=== PATIENT | male | born 1990 | race African-American/Black ===

== ENCOUNTER 2019-10-23 13:36 | Inpatient (IN) | payer MEDICAID ==
[~2019-10-23] VITALS: Ht 175.3 cm; Wt 75.3 kg
[2019-10-23] MEDS ORDERED: PANTOPRAZOLE SODIUM 40 MG VIAL IV ONE (14:15)
[2019-10-23] MEDS ORDERED: IV NORMAL SALINE 1000 ML BAG IV ONE (14:15)
[2019-10-23 14:35] LABS: BASOPHILS # (AUTO) 0.2 K/uL (0.0-8.0); BASOPHILS % (AUTO) 0.8 % (0.0-2.0); EOSINOPHILS # (AUTO) 0.3 K/uL (0.0-0.7); EOSINOPHILS % (AUTO) 1.4 % (0.0-7.0); HEMATOCRIT 34.3 % (36.7-47.1); HEMOGLOBIN 10.5 g/dL (12.5-16.3); LYMPHOCYTES # (AUTO) 3.2 K/uL (20.0-40.0); LYMPHOCYTES % (AUTO) 16.3 % (20.5-51.5); MEAN CORPUSCULAR HEMOGLOBIN 23.4 uug (23.8-33.4); MEAN CORPUSCULAR HGB CONC 31 g/dL (32.5-36.3); MEAN CORPUSCULAR VOLUME 76.2 fL (73.0-96.2); MONOCYTES # (AUTO) 1.5 K/uL (2.0-10.0); MONOCYTES % (AUTO) 7.5 % (0.0-11.0); NEUTROPHILS # (AUTO) 14.5 K/uL (1.8-8.9); PLATELET COUNT (AUTO) 483 K/uL (152-348); WHITE BLOOD COUNT (AUTO) 19.6 K/uL (3.6-10.2)
[2019-10-23] MEDS ORDERED: PANTOPRAZOLE SODIUM 40 MG VIAL ONE (14:35)
[2019-10-23 14:52] LABS: BILIRUBIN,DIRECT 0.1 mg/dL (0.0-0.2); BILIRUBIN,TOTAL 0.4 mg/dL (0.2-1.0); CREATININE 1.2 mg/dL (0.6-1.3); POTASSIUM 4.3 mmol/L (3.5-5.1)
--- NOTE | 2019-10-23 14:56 | NUR ---
DR Schultz spoke to Dr Pruitt(surgeon).
[2019-10-23] MEDS ORDERED: PIPERACILLIN SODIUM/TAZOBACTAM 3.375 G in IV DEXTROSE 5% 50 ML IV ONE (15:00)
[2019-10-23] MEDS ORDERED: PIPERACILLIN/TAZOBACTAM/D5W 50 ML IV ONE (15:01)
--- NOTE | 2019-10-23 15:07 | NUR ---
COVID nasal swab collected and sent to LAB.
[2019-10-23] MEDS ORDERED: methylPREDNISolone SOD SUCC 40 MG/ML VIAL IV ONE (15:15)
[2019-10-23] MEDS ORDERED: methylPREDNISolone SOD SUCC 40 MG/ML VIAL ONE (15:18)
--- NOTE | 2019-10-23 16:20 | NUR ---
Pt arrived to RM 303 AOx4, on RA with no SOB or distress noted at this time. Pt cooperative. IV on left AC 18 g, flushed and patent. Complained of left side sharp 9/10 abdominal pain. Abdomen distended and left side firm compared to right. Complained of left medial leg pain aggravated by walking. Pt ambulated to bathroom with steady gait. Oriented to hospital and unit policy. Call light and phone within reach. Belongings checked and at bedside. Home medications given to pharmacy. Bed locked in lowest position with siderails 2x up. No other complaints at this time
[2019-10-23] MEDS ORDERED: Z GUARD REMEDY PASTE 57 GM TUBE TOP PRN (16:30)
[2019-10-23] MEDS ORDERED: MAGNESIUM HYDROXIDE 30 ML LIQUID UDC PO PRN (16:30)
[2019-10-23] MEDS ORDERED: ONDANSETRON 4 MG/2 ML VIAL IV PRN (16:30)
[2019-10-23 17:02] VITALS: BP 145/77
[2019-10-23] MEDS: IV NS 1000 ML 1,000 ML IV PRN (18:09)
[2019-10-23] MEDS: PIPERACILLIN SODIUM/TAZOBACTAM 3.375 G in IV DEXTROSE 5% 50 ML IV SCH ×2 (18:47→23:08)
[2019-10-23] MEDS: MESALAMINE 500 MG CAPSULE.SA PO SCH ×2 (18:47→20:45)
--- NOTE | 2019-10-23 19:40 | NUR ---
Patient alert oriented, no sob no chest pain. Patient has no complain of abdominal pain, but complain of left knee pain. Patient ambulatory goes to bathroom for bladder eliminations, will medicate patient for pain as ordered, v/s stable cont to monitor.
[2019-10-23 19:56] VITALS: BP 129/76
[2019-10-23] MEDS: MORPHINE SULFATE 2 MG/1 ML DISP.SYRIN IV PRN (20:52)
[2019-10-23] MEDS: methylPREDNISolone SOD SUCC 40 MG/ML VIAL IV SCH (21:00)
[2019-10-24] MEDS: PIPERACILLIN SODIUM/TAZOBACTAM 3.375 G in IV DEXTROSE 5% 50 ML IV SCH ×4 (05:28→23:10)
[2019-10-24] MEDS: methylPREDNISolone SOD SUCC 40 MG/ML VIAL IV SCH ×3 (05:28→21:18)
[2019-10-24 05:37] VITALS: BP 102/59
--- NOTE | 2019-10-24 05:57 | NUR ---
PATIENT ALERT ORIENTED, NO COMPLAIN OF PAIN AT THIS TIME. PATIENT SLEPT MOST OF THE NIGHT, V/S STABLE, CONT TO MONITOR.
[2019-10-24 06:06] LABS: BASOPHILS % (AUTO) 0.1 % (0.0-2.0); HEMATOCRIT 34.9 % (36.7-47.1); HEMOGLOBIN 11.1 g/dL (12.5-16.3); LYMPHOCYTES # (AUTO) 1.2 K/uL (20.0-40.0); LYMPHOCYTES % (AUTO) 8.3 % (20.5-51.5); MEAN CORPUSCULAR HEMOGLOBIN 24.1 uug (23.8-33.4); MEAN CORPUSCULAR HGB CONC 32 g/dL (32.5-36.3); MEAN CORPUSCULAR VOLUME 76.1 fL (73.0-96.2); MONOCYTES # (AUTO) 0.4 K/uL (2.0-10.0); MONOCYTES % (AUTO) 2.5 % (0.0-11.0); NEUTROPHILS # (AUTO) 13.2 K/uL (1.8-8.9); NEUTROPHILS % (AUTO) 89.1 % (38.5-71.5); PLATELET COUNT (AUTO) 487 K/uL (152-348); RED BLOOD CELL COUNT(AUTO) 4.59 MIL/uL (4.06-5.63); WHITE BLOOD COUNT (AUTO) 14.9 K/uL (3.6-10.2)
[2019-10-24 06:28] LABS: CREATININE 1.1 mg/dL (0.6-1.3); MAGNESIUM 2.3 mg/dL (1.8-2.4); PHOSPHOROUS 3.6 mg/dL (2.5-4.9); POTASSIUM 3.9 mmol/L (3.5-5.1)
[2019-10-24 06:30] LABS: THYROID STIMULATING HORMONE 0.336 mIU/mL (0.358-3.740)
--- NOTE | 2019-10-24 08:15 | NUR ---
PATIENT IS AWAKE ALERT AND ORIENTED DENIES PAIN OR DISCOMFORTS AT THIS TIME HE IS NPO ORDERS CLARIFIED THAT HE COULD HAVE ORAL MEDS WITH SIPS OF WATER EVEN THOUGH HE IS NPO REMAIN ON IVF ORDERED WITH NO S/S OF INFILTERATION ON SITE.CALL LIGHTS AND PERSONAL BELONGINGS ARE WITHIN EASY REACH MADE COMFORTABLE WILL CONTINUE TO OBSERVE.
[2019-10-24] MEDS: MESALAMINE 500 MG CAPSULE.SA PO SCH ×4 (08:29→20:23)
--- NOTE | 2019-10-24 08:43 | NUR ---
PATIENT SEEN AND EXAMINED BY ANDREA FRITZ SLAB CONDITIONER SUPERVISOR WITH NO NEW ORDERS AT THIS TIME
[2019-10-24 11:35] VITALS: BP 116/59
[2019-10-24] MEDS: IV NS 1000 ML 1,000 ML IV PRN (14:54)
[2019-10-24 16:00] VITALS: BP 111/50
--- NOTE | 2019-10-24 18:10 | NUR ---
IV SITE INFILTERATED RESTARTED TO HIS RIGHT FOREARM GAUGE 20 WITH ONE ATTEMPT CONTINUE ON ATB ORDERED.
--- NOTE | 2019-10-24 18:38 | NUR ---
DR PATRICIA HOPE HERE TO SEE PATIENT WITH NO NEW ORDERS AT THIS TIME
[2019-10-24 19:49] VITALS: BP 132/70
[2019-10-24] MEDS: MORPHINE SULFATE 2 MG/1 ML DISP.SYRIN IV PRN (20:24)
--- NOTE | 2019-10-24 21:15 | NUR ---
Received patient lying in bed. AAOX4. In no acute distress. Denies any SOB. Pain on left knee tolerable at this time per pt. Had Morphine IV prior to receiving this patient. IV site on right FA intact and patent. IVF infusing. Safety measure initiated and call paniagua within reached.
[2019-10-25 04:50] VITALS: BP 155/65
[2019-10-25] MEDS: methylPREDNISolone SOD SUCC 40 MG/ML VIAL IV SCH ×3 (05:15→21:14)
[2019-10-25] MEDS: PIPERACILLIN SODIUM/TAZOBACTAM 3.375 G in IV DEXTROSE 5% 50 ML IV SCH ×4 (05:15→23:11)
[2019-10-25] MEDS: MORPHINE SULFATE 2 MG/1 ML DISP.SYRIN IV PRN ×2 (05:24→21:14)
--- NOTE | 2019-10-25 05:58 | NUR ---
AAOX4. In no acute distress. Denies any SOB. Morphine PRN given for complain of left knee pain and effective. IV site on right FA intact and patent. IVF infusing. No adverse effect from IV ABX noted. Safety measure maintained and call paniagua within reached.
--- NOTE | 2019-10-25 08:30 | NUR ---
RECEIVED PATIENT IN BED AWAKE ALERT AND ORIENTED REMAIN ON NOTHING BY MOUTH EXCEPT MEDICATIONS PATIENT REEDUCATED IVF REMAINS IN PROGRESS WITH NO S/S OF INFILTERATION ON SITE DENIES ABD PAIN AT THIS TIME WILL CONTINUE TO OBSERVE.
[2019-10-25] MEDS: MESALAMINE 500 MG CAPSULE.SA PO SCH ×4 (08:46→21:37)
[2019-10-25] MEDS: IV NS 1000 ML 1,000 ML IV PRN ×2 (08:52→23:10)
--- NOTE | 2019-10-25 11:19 | NUR ---
PATIENT SEEN AND EXAMINED BY SHAAN VELEZ COMMUNICATIONS CONTROLLER WITH NO NEW ORDERS AT THIS TIME THE PLAN IS FOR PATIENT TO BE SEN BY HELEN LARRY.
[2019-10-25 11:41] VITALS: BP 130/54
--- NOTE | 2019-10-25 12:42 | NUR ---
CALL RECEIVED FROM DR LARON CERVANTES WITH NEW ORDERS INCLUDING STOOL FOR C DIFF PATIENT INSTRUCTED AND PATIENT PLACED ON ISOLATION AT THIS TIME.
--- NOTE | 2019-10-25 15:47 | NUR ---
PATIENT TOLERATED CLEAR LIQUIDS DIET ORDERED DENIES ABDOMINAL PAIN DENIES NAUSEA OR VOMITING AT THIS TIME WILL ADVANCE DIET TO FULL LIQUIDS FOR DINNER AND IF ALL GOES WELL WILL ADVANCE TO REGULAR DIET FOR BREAKFAST TOMORROW.
[2019-10-25 16:00] VITALS: BP 123/54
--- NOTE | 2019-10-25 17:35 | NUR ---
STOOL SPECIMEN COLLECTED FOR C DIFF AND CULTURE A ORDERED AND SENT TO THE LAB.
--- NOTE | 2019-10-25 18:29 | NUR ---
PATIENT TOLERATED HIS FULL LIQUIDS DINNER WILL ORDER REGULAR DIET FOR BREAKFAST DENIES ABDOMINAL PAIN NAUSEA OR VOMITING AT THIS TIME
[2019-10-25 20:00] VITALS: BP 110/54
[2019-10-26 04:00] VITALS: BP 101/57
[2019-10-26] MEDS: methylPREDNISolone SOD SUCC 40 MG/ML VIAL IV SCH ×2 (05:32→13:36)
[2019-10-26] MEDS: PIPERACILLIN SODIUM/TAZOBACTAM 3.375 G in IV DEXTROSE 5% 50 ML IV SCH ×2 (05:32→11:26)
--- NOTE | 2019-10-26 05:38 | NUR ---
patient found with IVF turned off twice in the room. educated patient not to turn it off unless it is ordered by the doctor. verbalized that he understood but repeatedly turned the IVF off to use the bathroom.
[2019-10-26] MEDS: MORPHINE SULFATE 2 MG/1 ML DISP.SYRIN IV PRN (05:50)
[2019-10-26 06:19] LABS: HEMATOCRIT 32.2 % (36.7-47.1); HEMOGLOBIN 10.2 g/dL (12.5-16.3); LYMPHOCYTES # (AUTO) 1.6 K/uL (20.0-40.0); LYMPHOCYTES % (AUTO) 7.4 % (20.5-51.5); MEAN CORPUSCULAR HEMOGLOBIN 23.8 uug (23.8-33.4); MEAN CORPUSCULAR HGB CONC 32 g/dL (32.5-36.3); MEAN CORPUSCULAR VOLUME 75.2 fL (73.0-96.2); MONOCYTES # (AUTO) 1.8 K/uL (2.0-10.0); MONOCYTES % (AUTO) 8.5 % (0.0-11.0); NEUTROPHILS % (AUTO) 84.1 % (38.5-71.5); PLATELET COUNT (AUTO) 481 K/uL (152-348); RED BLOOD CELL COUNT(AUTO) 4.28 MIL/uL (4.06-5.63); WHITE BLOOD COUNT (AUTO) 21.5 K/uL (3.6-10.2)
[2019-10-26 06:37] LABS: CREATININE 1.2 mg/dL (0.6-1.3); POTASSIUM 4.2 mmol/L (3.5-5.1)
--- NOTE | 2019-10-26 07:30 | NUR ---
Received patient laying in bed, no sign of respiratory distress noted at this time. Patient is saturating well on room air. Patient is on isolation precautions pending C-Diff results. IV intact and patent on right FA 20 gauge running normal saline at 75cc. Safety precautions in place bed int he lowest position and locked with call light and belongings within reach. Will continue to observe and monitor.
[2019-10-26 08:27] VITALS: BP 108/50
[2019-10-26] MEDS: MESALAMINE 500 MG CAPSULE.SA PO SCH ×3 (08:30→17:39)
--- NOTE | 2019-10-26 12:00 | NUR ---
Spoke to Lasha Roberts from [facility] and she informed me that the C-Diff culture for Mr Figueroa is positive. Hospitalist Alexis Bonds made aware.
--- NOTE | 2019-10-26 13:36 | NUR ---
Per Hospitalist Alexis Bonds hold steroid treatment for Crohn's until the C-Diff infection has been resolved.
[2019-10-26] MEDS: VANCOMYCIN FOR PO/GT/NG USE PO SCH ×2 (14:58→17:39)
--- NOTE | 2019-10-26 14:59 | NUR ---
Patient is receiving Vanco PO medication late because the pharmacy was late in bring up the medication.
[2019-10-26 16:00] VITALS: BP 111/50
--- NOTE | 2019-10-26 16:00 | NUR ---
Walked patient downstairs with a TAP card provided by the nursing electrician constructor supervisor Lawrence to help him ride public transportation. Patient stated he is heading to his transitional housing located on [facility]. Patient left in stable condition with all his belongings and a prescription for antibiotics prescribed by the MD. Patient was advised to follow up with his doctor within 7 days.
[2019-10-26 16:02] VITALS: BP 114/63
== END 2019-10-26 18:10 | disposition home or self-care (01) | DRG 720 ==
LOC: ER 13:44 → MEDSURG3 16:04
PROVIDERS: ADMIT Nurse Practitioner Acute Care; ATTEND Nurse Practitioner Acute Care
DX: A41.9 Sepsis, unspecified organism (principal); M13.862 Other specified arthritis, left knee; D64.9 Anemia, unspecified; E88.09 Other disorders of plasma-protein metabolism, not elsewhere classified; F20.9 Schizophrenia, unspecified; Z87.442 Personal history of urinary calculi; K65.9 Peritonitis, unspecified; D47.3 Essential (hemorrhagic) thrombocythemia; N20.0 Calculus of kidney; M25.562 Pain in left knee; A04.71 Enterocolitis due to Clostridium difficile, recurrent; K50.10 Crohn's disease of large intestine without complications; K35.80 Unspecified acute appendicitis
CPT/HCPCS: 36415; 83605; 83690; 83735; 84100; 84443; 85025; 85730; 86625; 87040; 87046; A4663; C9113; G0378; J2270; J2543; J2920; J3370; J7030; J7060

== ENCOUNTER 2020-07-18 21:20 | Inpatient (IN) | payer MEDICAID ==
[~2020-07-18] VITALS: Ht 177.8 cm; Wt 81.7 kg
--- NOTE | 2020-07-18 21:47 | NUR ---
MD Davenport in room to do MSE.
--- NOTE | 2020-07-18 21:50 | NUR ---
Patient walked into ER c/o abdominal pain that started 3 days ago. Also c/o LLE redness, swelling and pain that started this AM.
[2020-07-18] MEDS ORDERED: HYDROMORPHONE 1 MG/1 ML DISP.SYRIN IV PRN (22:00)
[2020-07-18] MEDS ORDERED: ONDANSETRON 4 MG/2 ML VIAL IV PRN (22:00)
[2020-07-18] MEDS ORDERED: ONDANSETRON 4 MG/2 ML VIAL ONE (22:10)
[2020-07-18] MEDS ORDERED: DIATR MEGLU/DIATRIZOATE SODIUM 30 ML BOTTLE ONE (22:10)
[2020-07-18] MEDS ORDERED: HYDROMORPHONE 1 MG/1 ML DISP.SYRIN ONE (22:10)
[2020-07-18] MEDS: NORMAL SALINE FLUSH 10 ML DISP.SYRIN IV SCH (22:20)
[2020-07-18 23:27] LABS: BASOPHILS % (AUTO) 0.2 % (0.0-2.0); EOSINOPHILS # (AUTO) 0.1 K/uL (0.0-0.7); EOSINOPHILS % (AUTO) 0.8 % (0.0-7.0); HEMATOCRIT 41.7 % (36.7-47.1); HEMOGLOBIN 13.4 g/dL (12.5-16.3); LYMPHOCYTES # (AUTO) 1.4 K/uL (20.0-40.0); LYMPHOCYTES % (AUTO) 11.8 % (20.5-51.5); MEAN CORPUSCULAR HEMOGLOBIN 25.2 uug (23.8-33.4); MEAN CORPUSCULAR HGB CONC 32 g/dL (32.5-36.3); MEAN CORPUSCULAR VOLUME 78.2 fL (73.0-96.2); MONOCYTES # (AUTO) 1.4 K/uL (2.0-10.0); MONOCYTES % (AUTO) 11.5 % (0.0-11.0); NEUTROPHILS % (AUTO) 75.7 % (38.5-71.5); PLATELET COUNT (AUTO) 362 K/uL (152-348); RED BLOOD CELL COUNT(AUTO) 5.33 MIL/uL (4.06-5.63); WHITE BLOOD COUNT (AUTO) 11.9 K/uL (3.6-10.2)
[2020-07-18 23:39] LABS: BILIRUBIN,DIRECT 0.1 mg/dL (0.0-0.2); BILIRUBIN,TOTAL 0.3 mg/dL (0.2-1.0); CREATININE 1.1 mg/dL (0.6-1.3); POTASSIUM 3.4 mmol/L (3.5-5.1); TOTAL PROTEIN, SERUM 8.2 g/dL (6.4-8.2)
[2020-07-18] MEDS ORDERED: POTASSIUM BICARBONATE/CIT AC 25 MEQ TABLET.EFF PO ONE (23:45)
[2020-07-18] MEDS ORDERED: SWABABLE VALVE TRANSFER SET EA MC ONE (23:54)
[2020-07-18] MEDS ORDERED: IV NORMAL SALINE 250 ML IV ONE (23:54)
[2020-07-18] MEDS ORDERED: IOHEXOL 300MG/ML 100 ML INFUS..BTL ONE (23:54)
--- NOTE | 2020-07-18 23:55 | NUR ---
Patient out of unit for ct scan via gurny.
[2020-07-19] MEDS ORDERED: POTASSIUM BICARBONATE/CIT AC 25 MEQ TABLET.EFF ONE (00:02)
--- NOTE | 2020-07-19 00:10 | NUR ---
Patient back from ct scan with no distress noted.
[2020-07-19] MEDS: HYDROMORPHONE 1 MG/1 ML DISP.SYRIN IM ONE ×2 (00:42→00:49)
[2020-07-19] MEDS ORDERED: HYDROMORPHONE 1 MG/1 ML DISP.SYRIN ONE (00:43)
[2020-07-19] MEDS ORDERED: IV NORMAL SALINE 500 ML IV ONE (00:45)
[2020-07-19] MEDS ORDERED: methylPREDNISolone SOD SUCC 40 MG/ML VIAL IM ONE (00:45)
[2020-07-19] MEDS ORDERED: methylPREDNISolone SOD SUCC 40 MG/ML VIAL ONE ×2 (00:49)
[2020-07-19] MEDS ORDERED: CHOL50002 PO (01:34)
[2020-07-19] MEDS ORDERED: VANC125C5 PO (01:34)
[2020-07-19] MEDS ORDERED: CIPR500T5 PO (01:34)
--- NOTE | 2020-07-19 02:01 | NUR ---
Paged Epic panel supervisor of operations, waiting for Dr Forde to call back.
--- NOTE | 2020-07-19 02:11 | NUR ---
JUN speaking with DR Forde.
--- NOTE | 2020-07-19 02:33 | NUR ---
Transfered to 3rd floor Med-Surg via wheelchair.
[2020-07-19] MEDS ORDERED: ACETAMINOPHEN 325 MG TABLET PO PRN (03:00)
[2020-07-19] MEDS ORDERED: ZOLPIDEM 5 MG TABLET PO PRN (03:00)
[2020-07-19] MEDS ORDERED: Z GUARD REMEDY PASTE 57 GM TUBE TOP PRN (03:00)
[2020-07-19] MEDS ORDERED: MAGNESIUM HYDROXIDE 30 ML LIQUID UDC PO PRN (03:00)
[2020-07-19] MEDS ORDERED: ONDANSETRON 4 MG/2 ML VIAL IV PRN (03:00)
[2020-07-19] MEDS ORDERED: HYDROCODONE/APAP 5-325MG TABLET PO PRN (03:00)
[2020-07-19 03:05] VITALS: BP 141/65
[2020-07-19] MEDS: IV D5 1/2 NS 1000 ML 1,000 ML IV PRN ×2 (03:14→11:12)
[2020-07-19] MEDS: MORPHINE SULFATE 2 MG/1 ML DISP.SYRIN IV PRN ×3 (03:38→21:28)
[2020-07-19 04:00] VITALS: BP 120/65
--- NOTE | 2020-07-19 05:27 | NUR ---
Pt admitted to Medical Surgical at 0235H from ER via wheelchair. Arrived in stable condition with c/o abdominal pain. Denies N/V or chest pain. Assessment complete and all belongings accounted for. Meth pipe found in belongings and charge nurse was notified, placed in biohazard bag and in chart. IV site intact and patent. Redness noted on left lower leg, possible cellulitis, picture taken and placed in chart. Pt is NPO and started on IV fluids. Is independent and able to ambulate and use urinal on own. Given Morphine for pain, tolerated well. Safety precautions in place. No other issues or concerns at this time, will endorse to day shift.
[2020-07-19] MEDS: NORMAL SALINE FLUSH 10 ML DISP.SYRIN IV SCH ×3 (06:01→21:16)
[2020-07-19] MEDS: methylPREDNISolone SOD SUCC 40 MG/ML VIAL IV SCH ×3 (06:01→21:16)
[2020-07-19] MEDS: PANTOPRAZOLE SODIUM 40 MG VIAL IV SCH (08:59)
[2020-07-19 09:07] VITALS: BP 118/53
[2020-07-19 12:00] VITALS: BP 120/79
--- NOTE | 2020-07-19 14:27 | NUR ---
Folder Seamer note: Folder Seamer consultation attempted for substance abuse. This EXTENSION WORK INSTRUCTOR tried meeting with this patient, however patient was asleep. This EXTENSION WORK INSTRUCTOR called out the patient's name 3 times, however patient was not arousable. This EXTENSION WORK INSTRUCTOR to follow-up with the patient at a later time.
--- NOTE | 2020-07-19 15:00 | NUR ---
Report given to Sepideh charge nurse. Patient remains in bed asleep, no distress noted at this time, bed in low position, side rails up x2, call light in reach.
[2020-07-19] MEDS ORDERED: POLY17PO4 GT (15:39)
[2020-07-19] MEDS ORDERED: SENN-175 PO (15:40)
[2020-07-19] MEDS ORDERED: METO5TAB2 PO (15:41)
[2020-07-19] MEDS ORDERED: ACET-2605 PO (15:43)
[2020-07-19] MEDS ORDERED: TAMS-3 PO (15:44)
[2020-07-19 16:00] VITALS: BP 107/53
--- NOTE | 2020-07-19 18:15 | NUR ---
pt in bed resting, awake alert and oriented x4, pt has afsaneh lower leg redness, pictures taken and put in chart, pt refused treatment for afsaneh lower leg redness. pt on room air, no signs of distress, no reports of pain at this time. pt is ambulatory, BRP, pt on clear liquids diet. iv on the right thumb, 20g, patent, intact IVF infusing D5 1/2 NS at 125cc. bed in low and locked position, call light within reach, safety precautions in place, will endorse to oncoming nurse.
--- NOTE | 2020-07-19 19:30 | NUR ---
Received pt in bed, awake and verbally responsive, able to make needs known. No s/s of respiratory distress, denies any pain or discomfort. IVF infusing well. Safety measures initiated, call light within reach, will continue to monitor.
[2020-07-19 20:00] VITALS: BP 109/50
--- NOTE | 2020-07-19 21:30 | NUR ---
Pt refused IV fluids. Explained benefits and risks of not getting it. Pt still refused. Will continue to monitor.
[2020-07-20] MEDS: methylPREDNISolone SOD SUCC 40 MG/ML VIAL IV SCH ×3 (05:14→21:03)
[2020-07-20] MEDS: NORMAL SALINE FLUSH 10 ML DISP.SYRIN IV SCH ×3 (05:14→21:04)
[2020-07-20 06:36] LABS: BASOPHILS % (AUTO) 0.1 % (0.0-2.0); HEMATOCRIT 40.2 % (36.7-47.1); HEMOGLOBIN 12.8 g/dL (12.5-16.3); LYMPHOCYTES % (AUTO) 7.7 % (20.5-51.5); MEAN CORPUSCULAR HEMOGLOBIN 25.6 uug (23.8-33.4); MEAN CORPUSCULAR HGB CONC 32 g/dL (32.5-36.3); MONOCYTES # (AUTO) 1.4 K/uL (2.0-10.0); NEUTROPHILS # (AUTO) 10.2 K/uL (1.8-8.9); NEUTROPHILS % (AUTO) 81.2 % (38.5-71.5); PLATELET COUNT (AUTO) 357 K/uL (152-348); RED BLOOD CELL COUNT(AUTO) 5.02 MIL/uL (4.06-5.63); WHITE BLOOD COUNT (AUTO) 12.6 K/uL (3.6-10.2)
--- NOTE | 2020-07-20 06:38 | NUR ---
Pt in bed, slept through the night, no s/s of respiratory distress, denies pain or discomfort. Medications tolerated well. Safety measures maintained at all times, call light within reach, all needs attended.
[2020-07-20 06:45] LABS: CREATININE 1.2 mg/dL (0.6-1.3); MAGNESIUM 2.5 mg/dL (1.8-2.4); PHOSPHOROUS 4.6 mg/dL (2.5-4.9)
[2020-07-20 06:52] LABS: THYROID STIMULATING HORMONE 0.258 mIU/mL (0.358-3.740)
--- NOTE | 2020-07-20 07:30 | NUR ---
Received patient asleep on bed. on room air. With Right hand #22 gauge saline lock. no signs of acute distress. bed locked and in low position for safety. call light within reach. will continue to monitor.
[2020-07-20] MEDS: PANTOPRAZOLE SODIUM 40 MG VIAL IV SCH (08:51)
[2020-07-20] MEDS: IV D5 1/2 NS 1000 ML 1,000 ML IV PRN ×2 (08:52→18:24)
[2020-07-20 12:00] VITALS: BP 104/52
--- NOTE | 2020-07-20 13:25 | NUR ---
AUTOMATIC GLOVE TURNER AND FORMER followed-up with the patient today. AUTOMATIC GLOVE TURNER AND FORMER entered the patient's room, and patient was lying down in his bed with his eyes closed. AUTOMATIC GLOVE TURNER AND FORMER called out patient's name twice, and patient did not respond. AUTOMATIC GLOVE TURNER AND FORMER called out patient's name a third time, and patient turned his head towards the wall, keeping his eyes closed, and did not respond to this AUTOMATIC GLOVE TURNER AND FORMER. AUTOMATIC GLOVE TURNER AND FORMER once again not able to complete SS consultation. AUTOMATIC GLOVE TURNER AND FORMER informed patient's nurse Mariana of above. Silk Screen Operator will continue to remain available to follow-up with patient, as needed.
[2020-07-20 16:00] VITALS: BP 114/59
--- NOTE | 2020-07-20 19:10 | NUR ---
Received pt laying in bed, awake, A&Ox4, able to make needs known. No s/s of respiratory distress, denies any pain or discomfort. IVF infusing well. Safety measures initiated, call light within reach, will continue to monitor.
[2020-07-20 20:23] VITALS: BP 93/48
[2020-07-20 20:45] VITALS: BP 112/57
[2020-07-20] MEDS: MORPHINE SULFATE 2 MG/1 ML DISP.SYRIN IV PRN (21:03)
[2020-07-21] MEDS: IV D5 1/2 NS 1000 ML 1,000 ML IV PRN (03:31)
[2020-07-21 05:41] VITALS: BP 117/48
--- NOTE | 2020-07-21 06:30 | NUR ---
Pt in bed, able to make needs known. no s/s of respiratory distress, denies pain or discomfort. Medications tolerated well. IVF infusing well. Safety measures maintained at all times, call light within reach, all needs attended.
[2020-07-21] MEDS: methylPREDNISolone SOD SUCC 40 MG/ML VIAL IV SCH ×2 (06:57→21:52)
[2020-07-21] MEDS: NORMAL SALINE FLUSH 10 ML DISP.SYRIN IV SCH ×3 (06:58→21:53)
[2020-07-21] MEDS: PANTOPRAZOLE SODIUM 40 MG VIAL IV SCH (07:47)
[2020-07-21] MEDS: MORPHINE SULFATE 2 MG/1 ML DISP.SYRIN IV PRN ×4 (08:47→20:37)
--- NOTE | 2020-07-21 09:46 | NUR ---
care taken over at 0900. in position when first met, appeared comfortable, " just want to be left alone, and awaiting next round of morphine, stated. still on clear liquid diet, asked for another clear ensure, given
[2020-07-21 09:49] VITALS: BP 118/51
[2020-07-21 12:04] VITALS: BP 120/77
--- NOTE | 2020-07-21 13:44 | NUR ---
denied abdominal pain at this time, c/o L leg " some discomfort, and pinpointed a small red spot, on lateral side of leg, aware by attending on round. L leg US done just now Continues on Clear liquid diet, so far, tolerates well. Second dose of MSO4 2mg ivp given at about 1250, per patient's request.
--- NOTE | 2020-07-21 15:22 | NUR ---
us of L lower leg, dvt (-),patient made aware. Now complained of back pain, " want some more morphine if possible". Being instructed the next dose of morphine would be at about 1700. Agreeable and went back to sleep.
[2020-07-21 16:00] VITALS: BP 95/48
--- NOTE | 2020-07-21 16:33 | NUR ---
scaled back pain as 4-5/10, EDWINCO one po offered, adamantly declined " it did not help, i want morphine" 2mg ivp mso4 given right now.
--- NOTE | 2020-07-21 18:33 | NUR ---
first bowel movement today, " all liquids, when wiped self, thomas blood on tissues, texted his attending.
--- NOTE | 2020-07-21 19:30 | NUR ---
Received pt in bed, awake and verbally responsive. Pt just had a loose BM, mostly liquid as stated by pt with scant blood. Denies any pain or discomfort, no s/s of respiratory distress. IVF infusing well on R forearm. Safety measures initiated, call light within reach, will continue to monitor.
[2020-07-21 19:48] VITALS: BP 121/49
[2020-07-21] MEDS ORDERED: TAMSULOSIN HCL 0.4 MG CAP.SR.24H PO SCH (21:00)
[2020-07-22] MEDS: MORPHINE SULFATE 2 MG/1 ML DISP.SYRIN IV PRN (02:38)
[2020-07-22] MEDS ORDERED: diphenhydrAMINE 25 MG CAP PO PRN (03:15)
[2020-07-22 05:18] VITALS: BP 103/48
[2020-07-22] MEDS: NORMAL SALINE FLUSH 10 ML DISP.SYRIN IV SCH ×2 (05:33→14:10)
--- NOTE | 2020-07-22 06:16 | NUR ---
Pt asleep in bed, easily arousable to name. No s/s of respiratory distress, denies pain or discomfort. IV access on left hand intact and patent, IVF infusing well. Still on clear liquid diet. Medications tolerated well. Safety measures maintained at all times, call light within reach, all needs attended.
[2020-07-22] MEDS ORDERED: PANTOPRAZOLE SODIUM 40 MG TABLET.DR PO SCH (07:00)
--- NOTE | 2020-07-22 07:30 | NUR ---
Received patient awake in bed. AOx4. on room air. Right hand #20 IV access with D5 1/2NS running at 125cc/hr. patient denies pain/ discomfort at this time. bed locked and in low position. no signs of acute distress. will continue to monitor.
[2020-07-22 08:04] VITALS: BP 112/55
[2020-07-22] MEDS: methylPREDNISolone SOD SUCC 40 MG/ML VIAL IV SCH (08:27)
[2020-07-22] MEDS: IV D5 1/2 NS 1000 ML 1,000 ML IV PRN (09:40)
--- NOTE | 2020-07-22 16:16 | NUR ---
Patient discharged to home. AOx4. Not in acute distress. Patient denies pain/ discomfort at this time. Discharge instructions given to patient and patient verbalized understanding. Discharge documents given and signed by patient. Belongings accounted for and belongings list signed by patient. IV access removed. ID armband removed. Patient assisted to lobby via wheelchair. Patient stated he will ride a bus home.
== END 2020-07-22 16:05 | disposition home or self-care (01) | DRG 245 ==
LOC: ER 21:23 → MEDSURG3 07-19 02:21
PROVIDERS: ADMIT Internal Medicine; ATTEND Internal Medicine
DX: K51.911 Ulcerative colitis, unspecified with rectal bleeding (principal); E27.8 Other specified disorders of adrenal gland; A04.9 Bacterial intestinal infection, unspecified; F20.9 Schizophrenia, unspecified; D50.9 Iron deficiency anemia, unspecified; F15.10 Other stimulant abuse, uncomplicated; E87.6 Hypokalemia; Z20.822 Contact with and (suspected) exposure to COVID-19; R10.9 Unspecified abdominal pain; N43.3 Hydrocele, unspecified; N20.0 Calculus of kidney
CPT/HCPCS: 36415; 83690; 83735; 84100; 84443; 85025; 85730; 93005; A4663; C9113; G0378; J1170; J2270; J2405; J2920; J3490; J7030; J7040; J7050; Q0163; Q9963; Q9967

== ENCOUNTER 2021-04-03 13:01 | Inpatient (IN) | payer MEDICAID, OTHER ==
[~2021-04-03] VITALS: Ht 177.8 cm; Wt 77.4 kg
[~2021-04-03 13:01] MED LIST: CHOL50002 PO; METO5TAB2 PO; TAMS-3 PO
--- NOTE | 2021-04-03 13:45 | NUR ---
COVID-19 specimen was collected and sent to lab. I was unable to properly obtain the specimen. I explaned the procedure to the pt prior to collection. During the collection pt became upset, grabbed my hand and pulled the collection swab out. Pt stated "I don't want anything shoved in my nose". I explained why it is important for me to collect the swab properly for accurate results but pt continued to raise his voice and refused.
[2021-04-03 13:50] LABS: CREATININE 1.3 mg/dL (0.6-1.3); POTASSIUM 4.1 mmol/L (3.5-5.1)
[2021-04-03 13:52] LABS: HEMATOCRIT 29.4 % (36.7-47.1); MEAN CORPUSCULAR HEMOGLOBIN 19.3 uug (23.8-33.4); MEAN CORPUSCULAR VOLUME 63.3 fL (73.0-96.2); PLATELET COUNT (AUTO) 678 K/uL (152-348)
[2021-04-03 13:56] LABS: BILIRUBIN,TOTAL 0.2 mg/dL (0.2-1.0); TOTAL PROTEIN, SERUM 7.6 g/dL (6.4-8.2)
[2021-04-03] MEDS ORDERED: MORPHINE SULFATE 4 MG/1 ML DISP.SYRIN IV ONE (14:30)
[2021-04-03] MEDS ORDERED: ONDANSETRON 4 MG/2 ML VIAL IV ONE (14:30)
[2021-04-03] MEDS ORDERED: ONDANSETRON 4 MG/2 ML VIAL ONE (14:53)
[2021-04-03] MEDS ORDERED: MORPHINE SULFATE 4 MG/1 ML DISP.SYRIN ONE (14:53)
--- NOTE | 2021-04-03 14:55 | NUR ---
Pt requested I take his temp because he "feels hot", oral zqrb=856.1 and reported to . Pt was medicated with Tylenol po, Morphine IV and Zofran IV as ordered.
[2021-04-03] MEDS ORDERED: SWABABLE VALVE TRANSFER SET EA MC ONE (14:58)
[2021-04-03] MEDS ORDERED: IOHEXOL 300MG/ML 100 ML INFUS..BTL ONE (14:59)
[2021-04-03] MEDS ORDERED: IV NORMAL SALINE 250 ML IV ONE (14:59)
[2021-04-03] MEDS ORDERED: ACETAMINOPHEN 325 MG TABLET PO ONE (15:00)
[2021-04-03] MEDS ORDERED: ACETAMINOPHEN 325 MG TABLET ONE (15:01)
[2021-04-03 15:06] LABS: LYMPHOCYTES % (MANUAL) 14 % (20-40); MONOCYTES % (MANUAL) 17 % (2-10); NEUTROPHILS % (MANUAL) 69 % (42-75)
[2021-04-03] MEDS ORDERED: IBUPROFEN 200 MG TABLET PO ONE (15:30)
[2021-04-03] MEDS ORDERED: HALOPERIDOL LACTATE 5 MG/1 ML VIAL IV ONE (15:30)
[2021-04-03] MEDS ORDERED: HALOPERIDOL LACTATE 5 MG/1 ML VIAL ONE (15:55)
[2021-04-03] MEDS ORDERED: METRONIDAZOLE 500 MG/NS 100 ML PIGGYBACK IV ONE (16:00)
[2021-04-03] MEDS ORDERED: HYDROMORPHONE 1 MG/1 ML DISP.SYRIN IV ONE (16:00)
--- NOTE | 2021-04-03 16:00 | NUR ---
Per she spoke with the registered nurse hh case manager from pt's [employer] via telephone and pt to be trans to [facility].
[2021-04-03] MEDS ORDERED: HYDROMORPHONE 1 MG/1 ML DISP.SYRIN ONE (16:05)
[2021-04-03] MEDS ORDERED: diphenhydrAMINE 50 MG/1 ML VIAL ONE (16:10)
[2021-04-03] MEDS ORDERED: METRONIDAZOLE 500 MG/NS 100ML 100 ML IV ONE ×3 (16:11→23:05)
[2021-04-03] MEDS ORDERED: diphenhydrAMINE 50 MG/1 ML VIAL IV ONE (16:15)
--- NOTE | 2021-04-03 17:10 | NUR ---
Per pt's HMO has given auth to admit pt here, she spoke with Maude Short who accepted the pt.
--- NOTE | 2021-04-03 17:30 | NUR ---
No beds available for admission until next shift. Pt resting in [facility] and talking on his cell phone with NAD noted at this time.
[2021-04-03 20:00] VITALS: BP 114/68
[2021-04-03] MEDS ORDERED: ACETAMINOPHEN 325 MG TABLET PO PRN ×2 (20:45→21:15)
[2021-04-03] MEDS ORDERED: HYDROCODONE/APAP 5-325MG TABLET PO PRN ×2 (20:45→21:15)
[2021-04-03] MEDS ORDERED: MAGNESIUM HYDROXIDE 30 ML LIQUID UDC PO PRN ×2 (20:45→21:15)
[2021-04-03] MEDS ORDERED: ONDANSETRON 4 MG/2 ML VIAL IV PRN ×2 (20:45→21:15)
[2021-04-03] MEDS ORDERED: Z GUARD REMEDY PASTE 57 GM TUBE TOP PRN ×2 (20:45→21:15)
[2021-04-03] MEDS ORDERED: IV NS 1000 ML 1,000 ML IV PRN ×2 (20:45→21:15)
[2021-04-03] MEDS ORDERED: methylPREDNISolone SOD SUCC 40 MG/ML VIAL IV SCH (20:45)
--- NOTE | 2021-04-03 20:50 | NUR ---
Admitted a 31 years old male with Dx of Crohn's Disease. Patient AAOx4. In no apparent distress. Denies any SOB. Noted with sporadic non-productive cough. Complaining of abdominal pain. Patient was given Morphine 4mg at the ER. Will provide pain medication once order is put in place and patient is rolled over from the ER. IV site on right AC intact and patent. Needs assessed and attended to. Routine admission care done. Plan of care initiated. Safety measure initiated and call light within reached.
--- NOTE | 2021-04-03 21:02 | NUR ---
report given to monisha sandra
[2021-04-03] MEDS ORDERED: METRONIDAZOLE 500 MG/NS 100ML 500 MG in PREMIXED 1 EACH IV SCH (22:00)
[2021-04-03] MEDS ORDERED: MESALAMINE 400 MG CAPSULE.ER PO SCH (22:00)
[2021-04-03] MEDS ORDERED: PIPERACILLIN SODIUM/TAZOBACTAM 3.375 G in IV DEXTROSE 5% 50 ML IV SCH (22:00)
[2021-04-03] MEDS: methylPREDNISolone SOD SUCC 40 MG/ML VIAL IV SCH (22:37)
--- NOTE | 2021-04-03 22:55 | NUR ---
Patient requesting for stronger pain medication. Only has order for Hydrocodone 5/325mg PO every 4 hours PRN. PROCESS TRAINER Han notifed and ordered Morphine 2mG every5 hours PRN for pain, Order noted and will carry out.
[2021-04-03] MEDS ORDERED: VANCOMYCIN IV 1,250 MG in IV DEXTROSE 5% 250 ML IV ONE (23:00)
[2021-04-03] MEDS ORDERED: PIPERACILLIN/TAZOBACTAM/D5W 100 ML IV ONE (23:06)
[2021-04-03] MEDS ORDERED: MESALAMINE 400 MG CAPSULE.ER PO ONE (23:07)
[2021-04-03] MEDS: PIPERACILLIN SODIUM/TAZOBACTAM 3.375 G in IV DEXTROSE 5% 50 ML IV SCH (23:09)
[2021-04-03] MEDS: MESALAMINE 400 MG CAPSULE.ER PO SCH (23:10)
[2021-04-03] MEDS: METRONIDAZOLE 500 MG/NS 100ML 500 MG in PREMIXED 1 EACH IV SCH (23:50)
[2021-04-03] MEDS: MORPHINE SULFATE 2 MG/1 ML DISP.SYRIN IV PRN (23:55)
[2021-04-04] MEDS ORDERED: VANCOMYCIN IV 200 ML ONE (00:42)
[2021-04-04] MEDS ORDERED: VANCOMYCIN HCL 500 MG VIAL ONE (00:56)
[2021-04-04] MEDS ORDERED: MESALAMINE 400 MG CAPSULE.ER PO ONE (03:41)
[2021-04-04 04:00] VITALS: BP 98/50
[2021-04-04 04:43] LABS: *BILIRUBIN,URIN NEGATIVE (NEGATIVE); *BLOOD, URINE NEGATIVE (NEGATIVE); *CLARITY,URINE CLEAR (CLEAR); *COLOR,URINE YELLOW (YELLOW); *KETONES,URINE NEGATIVE (NEGATIVE); *UROBILINOGEN,URINE 0.2 E.U./dl (NORMAL); LEUKOCYTE ESTERASE ,URINE NEGATIVE (NEGATIVE); NITRITE, URINE NEGATIVE (NEGATIVE); PH,URINE 6.5 (5.0-8.0); UGLUCOSE NEGATIVE (NEGATIVE)
[2021-04-04] MEDS: PIPERACILLIN SODIUM/TAZOBACTAM 3.375 G in IV DEXTROSE 5% 50 ML IV SCH (05:22)
[2021-04-04] MEDS: methylPREDNISolone SOD SUCC 40 MG/ML VIAL IV SCH ×3 (05:22→20:56)
[2021-04-04] MEDS: MESALAMINE 400 MG CAPSULE.ER PO SCH ×3 (05:23→21:57)
[2021-04-04] MEDS: METRONIDAZOLE 500 MG/NS 100ML 500 MG in PREMIXED 1 EACH IV SCH (06:06)
[2021-04-04] MEDS: MORPHINE SULFATE 2 MG/1 ML DISP.SYRIN IV PRN ×3 (06:07→20:59)
--- NOTE | 2021-04-04 06:17 | NUR ---
Remains AAOx4. In no acute distress. Denies any SOB. Morphine 2mg via IV given for complain of abdominal pain and effective. IV site on right AC intact and patent. No adverse reaction noted from IV antibiotics. Needs attended to and met. Safety measure maintained and call light within reached.
[2021-04-04] MEDS: PANTOPRAZOLE SODIUM 40 MG VIAL IV SCH (08:39)
[2021-04-04] MEDS ORDERED: PANTOPRAZOLE SODIUM 40 MG VIAL IV SCH (09:00)
[2021-04-04] MEDS ORDERED: DIATR MEGLU/DIATRIZOATE SODIUM 30 ML BOTTLE ONE (09:15)
[2021-04-04 09:50] LABS: HEMATOCRIT 30.6 % (36.7-47.1); MEAN CORPUSCULAR HEMOGLOBIN 19.6 uug (23.8-33.4); MEAN CORPUSCULAR VOLUME 63.6 fL (73.0-96.2); PLATELET COUNT (AUTO) 677 K/uL (152-348)
[2021-04-04 09:57] LABS: BILIRUBIN,TOTAL 0.3 mg/dL (0.2-1.0); CREATININE 1.3 mg/dL (0.6-1.3); MAGNESIUM 2.1 mg/dL (1.8-2.4); PHOSPHOROUS 4.3 mg/dL (2.5-4.9); TOTAL PROTEIN, SERUM 8.5 g/dL (6.4-8.2)
[2021-04-04 11:55] VITALS: BP 114/67
[2021-04-04] MEDS ORDERED: levoFLOXacin 500 MG/D5W 500 MG in PREMIXED 1 EACH IV SCH (12:00)
[2021-04-04] MEDS ORDERED: PIPERACILLIN SODIUM/TAZOBACTAM 3.375 G in IV DEXTROSE 5% 50 ML IV SCH (12:00)
[2021-04-04] MEDS ORDERED: VANCOMYCIN IV 1,250 MG in IV DEXTROSE 5% 250 ML IV SCH (13:00)
[2021-04-04] MEDS: METRONIDAZOLE 500 MG TABLET PO SCH ×2 (13:49→21:57)
[2021-04-04 16:00] VITALS: BP 122/52
[2021-04-04 20:00] VITALS: BP 117/52
[2021-04-05 04:00] VITALS: BP 136/52
[2021-04-05] MEDS: methylPREDNISolone SOD SUCC 40 MG/ML VIAL IV SCH ×2 (05:03→12:59)
[2021-04-05] MEDS: MESALAMINE 400 MG CAPSULE.ER PO SCH ×2 (05:03→13:01)
[2021-04-05] MEDS: METRONIDAZOLE 500 MG TABLET PO SCH ×2 (05:04→13:01)
--- NOTE | 2021-04-05 06:03 | NUR ---
Patient slept through out the night. In no acute distress. No complain of pain or SOB at this time. Morphine 2mg IV given every 6 hrs PRN for complain of abdominal pain and effective. IV site on left FA intact and patent. IVF infusing. No adverse effect noted from PO antibiotic. Needs assessed and attended to. Safety measure maintained and call light within reached.
--- NOTE | 2021-04-05 06:26 | NUR ---
Patient keeps on disconnecting his IV without letting the nurse know. Tried to place it back on but patient refused. Will informed MD.
[2021-04-05 07:09] LABS: HEMATOCRIT 30.1 % (36.7-47.1); MEAN CORPUSCULAR HEMOGLOBIN 19.7 uug (23.8-33.4); MEAN CORPUSCULAR VOLUME 63.6 fL (73.0-96.2); PLATELET COUNT (AUTO) 663 K/uL (152-348)
[2021-04-05 07:29] LABS: CREATININE 1.1 mg/dL (0.6-1.3); MAGNESIUM 2.2 mg/dL (1.8-2.4); PHOSPHOROUS 3.3 mg/dL (2.5-4.9); POTASSIUM 4.3 mmol/L (3.5-5.1)
[2021-04-05] MEDS: PANTOPRAZOLE SODIUM 40 MG VIAL IV SCH (08:33)
[2021-04-05] MEDS: MORPHINE SULFATE 2 MG/1 ML DISP.SYRIN IV PRN (08:34)
[2021-04-05 12:00] VITALS: BP 138/55
[2021-04-05] MEDS ORDERED: levoFLOXacin 500 MG TABLET PO SCH (13:00)
[2021-04-05] MEDS ORDERED: PRED20TA PO (13:57)
[2021-04-05] MEDS ORDERED: METR500T PO (13:57)
[2021-04-05] MEDS ORDERED: Mesalamine PO (13:57)
[2021-04-05] MEDS ORDERED: LEVO500T90 PO (13:57)
[2021-04-05 16:00] VITALS: BP 121/55
--- NOTE | 2021-04-05 18:30 | NUR ---
Discharged patient with VS WNL. no distress or pain noted. He left with private care along with family. skin intact. no concern identified. dc instructions given signed. Belonging list signed.
[2021-04-06 00:01] LABS: BAND % (MANUAL) 9 % (0-10); LYMPHOCYTES % (MANUAL) 14 % (20-40); MONOCYTES % (MANUAL) 7 % (2-10); NEUTROPHILS % (MANUAL) 70 % (42-75)
== END 2021-04-05 18:30 | disposition home or self-care (01) | DRG 245 ==
LOC: ER 13:01 → MEDSURG3 17:30 → ER 21:10
PROVIDERS: ADMIT Registered Nurse; ATTEND Registered Nurse
DX: K51.812 Other ulcerative colitis with intestinal obstruction (principal); D64.9 Anemia, unspecified; F20.9 Schizophrenia, unspecified; Z86.16 Personal history of COVID-19; F31.9 Bipolar disorder, unspecified; Z20.822 Contact with and (suspected) exposure to COVID-19; Z91.19 Patient's noncompliance with other medical treatment and regimen; K51.813 Other ulcerative colitis with fistula; K51.814 Other ulcerative colitis with abscess
CPT/HCPCS: 36415; 70030-TC; 71045; 74250; 83735; 84100; 85025; 86140; 86850; 86900; 86901; 87040; C9113; G0378; J1170; J1200; J1630; J1956; J2270; J2405; J2543; J2920; J3370; J3490; J7030; J7050; J7060; Q9963; Q9967

== ENCOUNTER 2021-08-01 19:42 | Emergency (ER) | payer MEDICAID, OTHER ==
[~2021-08-01] VITALS: Ht 175.3 cm; Wt 78.5 kg
[~2021-08-01 19:42] MED LIST changes: -CHOL50002 PO; +LEVO500T90 PO; -METO5TAB2 PO; +METR500T PO; +Mesalamine PO; +PRED20TA PO; -TAMS-3 PO
--- NOTE | 2021-08-01 19:48 | NUR ---
Dr Davenport at bedside, MSE in progress.
[2021-08-01] MEDS ORDERED: IV NORMAL SALINE 1000 ML BAG IV ONE (20:15)
[2021-08-01] MEDS ORDERED: ONDANSETRON 4 MG/2 ML VIAL IV ONE (20:15)
[2021-08-01] MEDS ORDERED: HYDROMORPHONE 1 MG/1 ML DISP.SYRIN IV ONE (20:15)
[2021-08-01] MEDS ORDERED: IOHEXOL 300MG/ML 100 ML INFUS..BTL ONE (20:31)
[2021-08-01] MEDS ORDERED: IV NORMAL SALINE 250 ML IV ONE (20:32)
[2021-08-01] MEDS ORDERED: SWABABLE VALVE TRANSFER SET EA MC ONE (20:32)
[2021-08-01 20:36] LABS: *BILIRUBIN,URIN NEGATIVE (NEGATIVE); *CLARITY,URINE CLEAR (CLEAR); *COLOR,URINE YELLOW (YELLOW); *KETONES,URINE NEGATIVE (NEGATIVE); *UROBILINOGEN,URINE 0.2 E.U./dl (NORMAL); LEUKOCYTE ESTERASE ,URINE TRACE (NEGATIVE); NITRITE, URINE NEGATIVE (NEGATIVE); PH,URINE 5.5 (5.0-8.0); UGLUCOSE NEGATIVE (NEGATIVE)
[2021-08-01 20:42] LABS: *BLOOD, URINE TRACE (NEGATIVE)
[2021-08-01 21:10] LABS: HEMATOCRIT 33.7 % (36.7-47.1); MEAN CORPUSCULAR HEMOGLOBIN 19.9 uug (23.8-33.4); MEAN CORPUSCULAR VOLUME 63.8 fL (73.0-96.2); PLATELET COUNT (AUTO) 519 K/uL (152-348)
[2021-08-01 21:20] LABS: CREATININE 1.2 mg/dL (0.6-1.3); POTASSIUM 3.3 mmol/L (3.5-5.1)
[2021-08-01 21:27] LABS: BILIRUBIN,DIRECT 0.1 mg/dL (0.0-0.2); BILIRUBIN,TOTAL 0.2 mg/dL (0.2-1.0); TOTAL PROTEIN, SERUM 7.6 g/dL (6.4-8.2)
[2021-08-01] MEDS ORDERED: HYDROMORPHONE 1 MG/1 ML DISP.SYRIN ONE (22:45)
[2021-08-01] MEDS ORDERED: ONDANSETRON 4 MG/2 ML VIAL ONE (22:45)
[2021-08-01 23:02] LABS: NEUTROPHILS % (MANUAL) 0 % (42-75)
[2021-08-01 23:38] LABS: BACTERIA,URINE NONE SEEN /HPF (NONE SEEN); RBC,URINE 50-80 /HPF (0-3); SQUAMOUS EPITHELIAL CELL,UR NONE SEEN /HPF (NONE SEEN)
[2021-08-02] MEDS ORDERED: METRONIDAZOLE 500 MG/NS 100 ML PIGGYBACK IV ONE (01:00)
[2021-08-02] MEDS ORDERED: levoFLOXacin 500 MG/D5W 100ML PIGGYBACK IV ONE (01:00)
[2021-08-02] MEDS ORDERED: levoFLOXacin 500 MG/D5W 100 ML ONE (02:18)
[2021-08-02] MEDS ORDERED: METRONIDAZOLE 500 MG/NS 100ML 100 ML IV ONE (02:19)
--- NOTE | 2021-08-02 04:28 | NUR ---
Patient discharged to home in stable condition. Written and verbal after care instructions given. Patient verbalizes understanding of instructions. Stressed follow up or return to ER for worsening s/s. pt ambulated with steady gait. denies pain .no SOb. no chest pain .AOx4
[2021-08-02 04:29] VITALS: BP 120/83
== END 2021-08-02 04:29 | disposition home or self-care (01) ==
LOC: ER 20:17
DX: R10.84 Generalized abdominal pain (principal); K50.90 Crohn's disease, unspecified, without complications; D50.9 Iron deficiency anemia, unspecified; F20.9 Schizophrenia, unspecified
CPT/HCPCS: 36415; 74177; 80048; 80076; 81001; 85007; 85025; 96361 ×2; 96365; 96367; 96375; 99285; J1170; J1956; J2405; J3490; J7040; Q9967; 70030-TC

== ENCOUNTER 2021-09-27 07:55 | Emergency (ER) | payer OTHER ==
[~2021-09-27] VITALS: Ht 177.8 cm; Wt 78.5 kg
[2021-09-27] MEDS ORDERED: IV NORMAL SALINE 500 ML BAG IV ONE (08:30)
[2021-09-27] MEDS ORDERED: MORPHINE SULFATE 4 MG/1 ML DISP.SYRIN IV ONE ×2 (08:30→15:45)
[2021-09-27] MEDS ORDERED: KETOROLAC TROMETHAMINE 15 MG INJ IVP ONE (08:45)
[2021-09-27 09:11] LABS: CREATININE 1.3 mg/dL (0.6-1.3); HEMATOCRIT 36.8 % (36.7-47.1); MEAN CORPUSCULAR HEMOGLOBIN 21.8 uug (23.8-33.4); MEAN CORPUSCULAR VOLUME 68.9 fL (73.0-96.2); PLATELET COUNT (AUTO) 397 K/uL (152-348); POTASSIUM 3.8 mmol/L (3.5-5.1)
[2021-09-27 09:17] LABS: BILIRUBIN,TOTAL 0.2 mg/dL (0.2-1.0); TOTAL PROTEIN, SERUM 7.5 g/dL (6.4-8.2)
[2021-09-27] MEDS ORDERED: IOHEXOL 350 100 ML INFUS..BTL ONE (10:00)
[2021-09-27] MEDS ORDERED: IV NORMAL SALINE 250 ML IV ONE (10:01)
[2021-09-27] MEDS ORDERED: SWABABLE VALVE TRANSFER SET EA MC ONE (10:01)
[2021-09-27] MEDS ORDERED: MORPHINE SULFATE 4 MG/1 ML DISP.SYRIN ONE ×2 (10:15→15:36)
[2021-09-27] MEDS ORDERED: KETOROLAC TROMETHAMINE 15 MG INJ ONE (10:15)
[2021-09-27 10:50] LABS: BAND % (MANUAL) 2 % (0-10); LYMPHOCYTES % (MANUAL) 11 % (20-40); MONOCYTES % (MANUAL) 4 % (2-10); NEUTROPHILS % (MANUAL) 83 % (42-75)
[2021-09-27] MEDS ORDERED: methylPREDNISolone SOD SUCC 125 MG/2 ML VIAL IV ONE (14:00)
--- NOTE | 2021-09-27 14:29 | NUR ---
Transfer info: [facility] room 2243 (Report to: [phone]) Accepting MD: [facility]: [facility] (ETA [id number]) Auth # [id number]
[2021-09-27] MEDS ORDERED: methylPREDNISolone SOD SUCC 125 MG/2 ML VIAL ONE (15:30)
[2021-09-27] MEDS ORDERED: MORPHINE SULFATE 2 MG/1 ML DISP.SYRIN ONE (15:36)
--- NOTE | 2021-09-27 16:33 | NUR ---
Called report to JUNAID Arzola at [facility]. Gave report and pt's chart to EMT's, Pt transported.
== END 2021-09-27 16:48 | disposition short-term general hospital (02) ==
LOC: ER 07:57
DX: K52.9 Noninfective gastroenteritis and colitis, unspecified (principal); R10.9 Unspecified abdominal pain; Z20.822 Contact with and (suspected) exposure to COVID-19; F15.10 Other stimulant abuse, uncomplicated; F20.9 Schizophrenia, unspecified; K50.90 Crohn's disease, unspecified, without complications
CPT/HCPCS: 36415; 71045; 71275; 74174; 80053; 83690; 84484 ×3; 85007; 85025; 85379; 85651; 86140; 87426; 93005; 96361; 96374; 96375; 96376; 99285; J1885; J2270 ×3; J2930; J7040; Q9967; 70030-TC

== ENCOUNTER 2021-11-19 12:36 | Emergency (ER) | payer OTHER ==
[~2021-11-19] VITALS: Ht 177.8 cm; Wt 75.3 kg
[2021-11-19 13:35] LABS: HEMATOCRIT 38.6 % (36.7-47.1); MEAN CORPUSCULAR HEMOGLOBIN 25.1 uug (23.8-33.4); MEAN CORPUSCULAR VOLUME 76.5 fL (73.0-96.2); PLATELET COUNT (AUTO) 406 K/uL (152-348)
--- NOTE | 2021-11-19 13:38 | NUR ---
Pt placed on monitor. MAde CN and Dr. Khoury aware that the HR is not true. Pt has been pleasuring himself under the sheet. Per CN, pt has hx of schizophrenia.
[2021-11-19] MEDS ORDERED: SWABABLE VALVE TRANSFER SET EA MC ONE (13:39)
[2021-11-19] MEDS ORDERED: IOHEXOL 350 100 ML INFUS..BTL ONE (13:40)
[2021-11-19] MEDS ORDERED: IV NORMAL SALINE 250 ML IV ONE (13:40)
[2021-11-19 14:11] LABS: *BILIRUBIN,URIN NEGATIVE (NEGATIVE); *BLOOD, URINE NEGATIVE (NEGATIVE); *CLARITY,URINE CLEAR (CLEAR); *COLOR,URINE YELLOW (YELLOW); *KETONES,URINE NEGATIVE (NEGATIVE); *UROBILINOGEN,URINE 0.2 E.U./dl (NORMAL); LEUKOCYTE ESTERASE ,URINE NEGATIVE (NEGATIVE); NITRITE, URINE NEGATIVE (NEGATIVE); PH,URINE 5.5 (5.0-8.0); UGLUCOSE NEGATIVE (NEGATIVE)
[2021-11-19] MEDS ORDERED: KETOROLAC TROMETHAMINE 15 MG INJ IVP ONE (14:15)
[2021-11-19] MEDS ORDERED: KETOROLAC TROMETHAMINE 15 MG INJ ONE (14:15)
[2021-11-19 14:21] LABS: BILIRUBIN,DIRECT 0.1 mg/dL (0.0-0.2); BILIRUBIN,TOTAL 0.2 mg/dL (0.2-1.0); CREATININE 1.1 mg/dL (0.6-1.3); POTASSIUM 3.4 mmol/L (3.5-5.1); TOTAL PROTEIN, SERUM 7.2 g/dL (6.4-8.2)
--- NOTE | 2021-11-19 14:58 | NUR ---
pt came back from CT.
[2021-11-19] MEDS ORDERED: MORPHINE SULFATE 2 MG/1 ML DISP.SYRIN ONE (15:13)
[2021-11-19] MEDS ORDERED: MORPHINE SULFATE 2 MG/1 ML DISP.SYRIN IV ONE (15:15)
[2021-11-19] MEDS ORDERED: HYDR-4209 PO (15:40)
[2021-11-19] MEDS ORDERED: diphenhydrAMINE 50 MG/1 ML VIAL ONE (15:43)
[2021-11-19] MEDS ORDERED: diphenhydrAMINE 50 MG/1 ML VIAL IV ONE (15:45)
[2021-11-19 15:56] VITALS: BP 118/76
== END 2021-11-19 15:57 | disposition home or self-care (01) ==
LOC: ER 12:36
DX: K50.919 Crohn's disease, unspecified, with unspecified complications (principal); K62.89 Other specified diseases of anus and rectum; F20.9 Schizophrenia, unspecified
CPT/HCPCS: 99285; 74177; 96374; 96375; 80076; 80048; 81003; 83690; 85025; 36415; 93005; J1200; J1885; Q9967; J2270; A4663; J7040

== ENCOUNTER 2022-01-28 12:45 | Emergency (ER) | payer OTHER ==
[~2022-01-28] VITALS: Ht 177.8 cm; Wt 75.3 kg
[~2022-01-28 12:45] MED LIST changes: +HYDR-4209 PO; -LEVO500T90 PO; -METR500T PO; -Mesalamine PO; -PRED20TA PO
[2022-01-28] MEDS ORDERED: DIVA-78 PO (13:48)
[2022-01-28] MEDS ORDERED: METO-295 PO (13:48)
[2022-01-28] MEDS ORDERED: DIVA500T54 PO (13:48)
[2022-01-28] MEDS ORDERED: AMPH10CA3 PO (13:48)
[2022-01-28] MEDS ORDERED: MELA3TAB41 PO (13:48)
[2022-01-28] MEDS ORDERED: PAXIL (13:48)
[2022-01-28] MEDS ORDERED: ALPR2TAB7 PO (13:48)
[2022-01-28] MEDS ORDERED: QUET100T PO (13:48)
[2022-01-28] MEDS ORDERED: LORA2TAB95 PO (13:48)
[2022-01-28] MEDS ORDERED: BENZ2TAB7 PO (13:48)
[2022-01-28] MEDS ORDERED: QUET300T2 PO (13:48)
[2022-01-28] MEDS ORDERED: OXYC10TA59 PO (13:48)
[2022-01-28] MEDS ORDERED: KETOROLAC TROMETHAMINE 30 MG INJ IM ONE (14:00)
[2022-01-28] MEDS ORDERED: ACETAMINOPHEN 325 MG TABLET PO ONE (14:00)
[2022-01-28] MEDS ORDERED: KETOROLAC TROMETHAMINE 30 MG INJ ONE (14:06)
[2022-01-28 14:07] LABS: MEAN CORPUSCULAR HEMOGLOBIN 26.5 uug (23.8-33.4); MEAN CORPUSCULAR VOLUME 81.1 fL (73.0-96.2); PLATELET COUNT (AUTO) 375 K/uL (152-348)
[2022-01-28] MEDS ORDERED: ACETAMINOPHEN 325 MG TABLET ONE (14:08)
--- NOTE | 2022-01-28 14:10 | NUR ---
Patient refused Toradol and Tylenol. "Can I have something like morphine or Dilaudid?" per patient's verbalization. MD notified.
[2022-01-28 14:18] LABS: CREATININE 1.2 mg/dL (0.6-1.3); POTASSIUM 4.9 mmol/L (3.5-5.1)
[2022-01-28 14:23] LABS: BILIRUBIN,TOTAL 0.1 mg/dL (0.2-1.0)
[2022-01-28] MEDS ORDERED: MORPHINE SULFATE 4 MG/1 ML DISP.SYRIN ONE (14:56)
[2022-01-28] MEDS ORDERED: MORPHINE SULFATE 4 MG/1 ML DISP.SYRIN IM ONE (15:00)
--- NOTE | 2022-01-28 15:27 | NUR ---
Patient discharged to home in stable condition with brisk steady gait. Written and verbal after care instructions given. Patient verbalized understanding and compliance of instructions. Stressed follow up with primary doctor and bicycle repairman or return to ER for worsening s/s.
== END 2022-01-28 15:28 | disposition home or self-care (01) ==
LOC: ER 12:45
DX: R10.84 Generalized abdominal pain (principal); R07.9 Chest pain, unspecified; F20.9 Schizophrenia, unspecified; K50.90 Crohn's disease, unspecified, without complications
CPT/HCPCS: 99285; 71045; 80053; 85025; 84484; 36415; 93005; 96372; J2270; A4663; J1885

== ENCOUNTER 2022-04-27 20:14 | Emergency (ER) | payer OTHER ==
--- NOTE | 2022-04-27 20:20 | NUR ---
Patient was called to be triaged but was not present in the waiting room or outside of ER.
--- NOTE | 2022-04-27 21:00 | NUR ---
Patient was called to be triaged but was not present in the waiting room or outside of ER.
--- NOTE | 2022-04-27 21:30 | NUR ---
Patient was called to be triaged but was not present in the waiting room or outside of ER. PATIENT WAS NOT TRIAGED OR SEEN BY ERMD.
== END 2022-04-27 21:30 | disposition left against medical advice (07) ==
LOC: ER 20:16
DX: Z53.21 Procedure and treatment not carried out due to patient leaving prior to being seen by health care provider (principal)

== ENCOUNTER 2022-07-06 14:23 | Inpatient (IN) | payer MEDICAID, OTHER ==
[~2022-07-06] VITALS: Ht 175.3 cm; Wt 77.1 kg
--- NOTE | 2022-07-06 14:36 | NUR ---
MD@bedside, medical screening exam in progress
[2022-07-06] MEDS ORDERED: IV NORMAL SALINE 1000 ML BAG IV ONE ×2 (14:45→17:00)
[2022-07-06] MEDS ORDERED: ONDANSETRON 4 MG/2 ML VIAL IV ONE ×2 (14:45→17:30)
[2022-07-06] MEDS ORDERED: ONDANSETRON 4 MG/2 ML VIAL ONE ×2 (14:49→17:31)
[2022-07-06 15:09] LABS: HEMATOCRIT 40.6 % (36.7-47.1); MEAN CORPUSCULAR HEMOGLOBIN 25.9 uug (23.8-33.4); MEAN CORPUSCULAR VOLUME 80.9 fL (73.0-96.2); PLATELET COUNT (AUTO) 500 K/uL (152-348)
[2022-07-06 15:21] LABS: CREATININE 1.4 mg/dL (0.6-1.3); POTASSIUM 3.8 mmol/L (3.5-5.1)
[2022-07-06 15:27] LABS: BILIRUBIN,DIRECT 0.1 mg/dL (0.0-0.2); BILIRUBIN,TOTAL 0.2 mg/dL (0.2-1.0); TOTAL PROTEIN, SERUM 8.5 g/dL (6.4-8.2)
--- NOTE | 2022-07-06 15:58 | NUR ---
Patient is resting comfortably on gurney while intermittently using his personal electronic device, [employer]. Patient is seen smiling while looking at his cellphone, with facial tissue to both nares placed by patient was also noted.
--- NOTE | 2022-07-06 17:08 | NUR ---
"OK to admit in our hospital." per ER registration/admitting staff Breana.
--- NOTE | 2022-07-06 17:27 | NUR ---
I attempted to give nursing report to assigned medical-surgical nurse Charlene, unsuccessful. Room 321 was also given for this patient.
[2022-07-06] MEDS ORDERED: MORPHINE SULFATE 2 MG/1 ML DISP.SYRIN IV ONE (17:30)
[2022-07-06] MEDS ORDERED: MORPHINE SULFATE 2 MG/1 ML DISP.SYRIN ONE (17:31)
--- NOTE | 2022-07-06 17:56 | NUR ---
*Patient left ER in stable condition. Hands off given to inpatient nurse for IV fluid END time, pain & nausea status reevaluation.
[2022-07-06] MEDS ORDERED: REMEDY ESSENTIAL ZINC PASTE 113 GM TP PRN (18:00)
[2022-07-06] MEDS ORDERED: MAGNESIUM HYDROXIDE 30 ML LIQUID UDC PO PRN (18:00)
[2022-07-06] MEDS ORDERED: ONDANSETRON 4 MG/2 ML VIAL IV PRN (18:00)
[2022-07-06] MEDS ORDERED: ACETAMINOPHEN 325 MG TABLET PO PRN (18:00)
[2022-07-06] MEDS: IV NS 1000 ML 1,000 ML IV PRN (19:58)
[2022-07-06 20:00] VITALS: BP 125/64
[2022-07-06] MEDS: levoFLOXacin 750MG/D5W 750 MG in PREMIXED 1 EACH IV SCH (20:00)
[2022-07-06] MEDS: METRONIDAZOLE 500 MG/NS 100ML 500 MG in PREMIXED 1 EACH IV SCH (20:01)
[2022-07-06] MEDS: methylPREDNISolone SOD SUCC 40 MG/ML VIAL IV SCH (20:01)
--- NOTE | 2022-07-06 20:10 | NUR ---
patient in bed watching tv AAOX4. MAEX4. no respiratory distress noted breathing even and unlabored on room air . patient deneis pain when asked . call light placed with in reach and advised patient to call for assistance .
--- NOTE | 2022-07-06 20:15 | NUR ---
patient called and said he ordered pizza and its downstairs informed and educated patient that he came for intractable abdominal pain and that the doctor order full liquid diet and that pizza is not a full liquid he can only have full liquids advised to collect stool for ob stool container placed at b/s. .
[2022-07-07] MEDS: DICYCLOMINE HCL 10 MG CAPSULE PO SCH ×4 (00:04→17:58)
[2022-07-07] MEDS: MORPHINE SULFATE 2 MG/1 ML DISP.SYRIN IV PRN ×2 (00:21→09:17)
[2022-07-07 04:00] VITALS: BP 107/63
[2022-07-07] MEDS: methylPREDNISolone SOD SUCC 40 MG/ML VIAL IV SCH ×2 (05:54→17:58)
[2022-07-07] MEDS: METRONIDAZOLE 500 MG/NS 100ML 500 MG in PREMIXED 1 EACH IV SCH ×3 (05:55→21:28)
[2022-07-07] MEDS: PANTOPRAZOLE SODIUM 40 MG TABLET.DR PO SCH (06:27)
[2022-07-07 06:46] LABS: HEMATOCRIT 34.2 % (36.7-47.1); MEAN CORPUSCULAR HEMOGLOBIN 26.7 uug (23.8-33.4); MEAN CORPUSCULAR VOLUME 80.7 fL (73.0-96.2); PLATELET COUNT (AUTO) 388 K/uL (152-348)
[2022-07-07 07:30] LABS: CARBON DIOXIDE 25 mmol/L (21-32); CHLORIDE 106 mmol/L (98-107); GLUCOSE 150 mg/dL (74-106); PHOSPHOROUS 3.5 mg/dL (2.5-4.9); POTASSIUM 4.6 mmol/L (3.5-5.1); UREA NITROGEN, BLOOD 14 mg/dL (7-18)
--- NOTE | 2022-07-07 08:00 | NUR ---
Received pt. lying in bed awake, alert and oriented with ongoing IVF NS @ 75ml/hr infusing well. Patient complaining of abdominal pain and nausea. Vital signs are stable. Observed patient accordingly
--- NOTE | 2022-07-07 09:17 | NUR ---
Patient given Morphine 2mg IV for pain and Zofran 4mg IV for nausea. Closely monitored, observed for any untoward signs and symptoms.
[2022-07-07 11:07] VITALS: BP 112/58
[2022-07-07 15:27] VITALS: BP 112/55
[2022-07-07] MEDS: levoFLOXacin 750MG/D5W 750 MG in PREMIXED 1 EACH IV SCH (17:57)
[2022-07-07] MEDS: IV NS 1000 ML 1,000 ML IV PRN (17:58)
--- NOTE | 2022-07-07 18:27 | NUR ---
A call from attending Andres Mustafa and ayesha to obtain Medical records from [facility] [place] [facility] received.
--- NOTE | 2022-07-07 18:28 | NUR ---
[facility] [place] called and MR fax , primary R.N. informed to obtain pt's consent and fax request.
[2022-07-08] MEDS: DICYCLOMINE HCL 10 MG CAPSULE PO SCH ×4 (00:12→17:15)
[2022-07-08] MEDS: METRONIDAZOLE 500 MG/NS 100ML 500 MG in PREMIXED 1 EACH IV SCH ×3 (05:15→22:53)
[2022-07-08] MEDS: methylPREDNISolone SOD SUCC 40 MG/ML VIAL IV SCH ×2 (05:15→17:15)
[2022-07-08] MEDS: PANTOPRAZOLE SODIUM 40 MG TABLET.DR PO SCH (06:11)
--- NOTE | 2022-07-08 06:36 | NUR ---
Patient alert oriented, no sob no chest pain, no complain of pain, no diarrhea episode no vomiting episodes, informed patient that MD ordered to upgrade his diet, able to follow, patient has episode of non compliant with care, refused vital signs taken, cont to encourage.
[2022-07-08 07:10] LABS: HEMATOCRIT 35.4 % (36.7-47.1); MEAN CORPUSCULAR HEMOGLOBIN 26.3 uug (23.8-33.4); MEAN CORPUSCULAR VOLUME 81.2 fL (73.0-96.2); PLATELET COUNT (AUTO) 387 K/uL (152-348)
[2022-07-08 07:31] LABS: CARBON DIOXIDE 27 mmol/L (21-32); CHLORIDE 105 mmol/L (98-107); GLUCOSE 107 mg/dL (74-106); MAGNESIUM 1.6 mg/dL (1.8-2.4); PHOSPHOROUS 2.7 mg/dL (2.5-4.9); UREA NITROGEN, BLOOD 12 mg/dL (7-18)
--- NOTE | 2022-07-08 09:00 | NUR ---
PT WAS IN THE BATHROOM. CAN WALK WITHOUT HELP. NO EPISODE OF DIARRHEA SO FAR. ADVANCED DIET TO SOFT DIET.
[2022-07-08] MEDS: MAGNESIUM SULFATE/D5W 100 ML IV SCH ×2 (10:03→10:12)
[2022-07-08] MEDS: IV NS 1000 ML 1,000 ML IV PRN (14:46)
[2022-07-08] MEDS: MORPHINE SULFATE 2 MG/1 ML DISP.SYRIN IV PRN (15:29)
[2022-07-08] MEDS: levoFLOXacin 750MG/D5W 750 MG in PREMIXED 1 EACH IV SCH (17:16)
--- NOTE | 2022-07-08 19:03 | NUR ---
PT. AMBULATORY. TOLERATING SOFT DIET. NO EPISODE OF DIARRHEA. ALL MEDICATIONS GIVEN AND TOLERATED WELL.
--- NOTE | 2022-07-08 20:29 | NUR ---
Received patient in bed alert oriented, no nausea no vomiting no diarrhea noted, no complain of pain, cont to monitor.
[2022-07-08 20:30] VITALS: BP 124/64
--- NOTE | 2022-07-09 | NUR ---
Patient like to ambulate to hallways, patient been drinking juice, ice water, ate crackers, given tuna sandwich complain of hunger. Patient current diet tolerate well, patient turn off IV fluids, disconnect self from the IV. Patient IV fluids is stop at this time, refused to be connected, ambulate to bathroom for bowel eliminations. patient has one episode of loose bowel movements. cont to monitor.
[2022-07-09] MEDS: DICYCLOMINE HCL 10 MG CAPSULE PO SCH ×3 (00:15→15:24)
--- NOTE | 2022-07-09 03:10 | NUR ---
Patient in room asleep, prefer to off from IV fluids, goes to bathroom for eliminations. Patient has no complain of pain or discomfort, cont to monitor.
[2022-07-09 04:37] VITALS: BP 110/56
[2022-07-09] MEDS: METRONIDAZOLE 500 MG/NS 100ML 500 MG in PREMIXED 1 EACH IV SCH (06:03)
[2022-07-09] MEDS: methylPREDNISolone SOD SUCC 40 MG/ML VIAL IV SCH (06:03)
[2022-07-09] MEDS: PANTOPRAZOLE SODIUM 40 MG TABLET.DR PO SCH (06:45)
--- NOTE | 2022-07-09 07:30 | NUR ---
NIGHT STAFF REPORT: 1) MENTAL STATE: AOx4 awake and watching TV 2) BREATHING: No sign of SOB, or distress observed. 3) SAFETY: Bed in low position, bed alarm activated, area around bed clear of obstacles, call paniagua within reach - however, family in the room all the time. 4) INFECTION CONTROL: Clean, patent, no sign of infection or inflammation observed. 5) EATING & DRINKING: Soft diet and self feeder 6) ELIMINATION: Wears a diaper - incontinent of feces due to medical condition. 7) MOBILITY: Fully mobile and self turning 8) PRESSURE AREA CARE: require - (i) keep patient clean and dry at all times. (ii) Sacral red - but skin is intact 9) Will continue to assess, monitor, implement, and evaluate care accordingly.
[2022-07-09 07:57] LABS: CHLORIDE 106 mmol/L (98-107); CREATININE 1.1 mg/dL (0.6-1.3); GLUCOSE 107 mg/dL (74-106); MAGNESIUM 1.8 mg/dL (1.8-2.4); POTASSIUM 3.7 mmol/L (3.5-5.1); UREA NITROGEN, BLOOD 12 mg/dL (7-18)
[2022-07-09 08:15] LABS: CARBON DIOXIDE 25 mmol/L (21-32)
[2022-07-09] MEDS: MORPHINE SULFATE 2 MG/1 ML DISP.SYRIN IV PRN (10:15)
--- NOTE | 2022-07-09 10:17 | NUR ---
PAIN MANAGEMENT: 1) C/o of back pain, burning sensation. 2) Pain score stated 10. 3) Morphine administered as prescribed and awaiting effect
[2022-07-09 11:50] VITALS: BP 119/71
[2022-07-09] MEDS ORDERED: DICY10CA21 PO (12:38)
[2022-07-09] MEDS ORDERED: METR500T PO (12:38)
[2022-07-09] MEDS ORDERED: OXYC-128 PO (12:38)
[2022-07-09] MEDS ORDERED: LEVO750T46 PO (12:38)
--- NOTE | 2022-07-09 13:52 | NUR ---
PAIN MANAGEMENT : 1) Asked for Oxycodone - but only prescribed as take home meds. 2) Offered Morphine but refused. 3) Passively aggressive and rude all the time.
[2022-07-09] MEDS ORDERED: METRONIDAZOLE 500 MG TABLET PO SCH (14:00)
--- NOTE | 2022-07-09 15:25 | NUR ---
DISCHARGE PLANNIN) iv access - patient stated that he removed and very rude and passive. 2) Discharge paperwork signed and provided with copies. 3) Security escorted patient because of belongings in the safe. Once again being rude and passive aggressive - could not wait for security to bring the property back to the unit. 4) Mother picking patient and was clinically stable on discharge.
--- NOTE | 2022-07-09 15:50 | NUR ---
PATIENT LEFT AT 15:30PM
== END 2022-07-09 15:15 | disposition home or self-care (01) | DRG 245 ==
LOC: ER 14:43 → UNDOADMIN 17:52 → MEDSURG3 17:52
PROVIDERS: ADMIT Nurse Practitioner Family; ATTEND Nurse Practitioner Family
DX: K50.913 Crohn's disease, unspecified, with fistula (principal); N17.0 Acute kidney failure with tubular necrosis; F31.9 Bipolar disorder, unspecified; F20.9 Schizophrenia, unspecified; K52.9 Noninfective gastroenteritis and colitis, unspecified; F41.9 Anxiety disorder, unspecified; D75.839 Thrombocytosis, unspecified; K29.70 Gastritis, unspecified, without bleeding; R73.9 Hyperglycemia, unspecified; M46.1 Sacroiliitis, not elsewhere classified; Z20.822 Contact with and (suspected) exposure to COVID-19
CPT/HCPCS: 36415; 71045; 83690; 83735; 84100; 85025; 85651; 86140; A4663; G0378; J1956; J2270; J2405; J2920; J3475; J3490; J7040

== ENCOUNTER 2022-11-30 19:50 | Emergency (ER) | payer MEDICAID ==
[~2022-11-30] VITALS: Ht 177.8 cm; Wt 82.1 kg
[~2022-11-30 19:50] MED LIST changes: +DICY10CA21 PO; -HYDR-4209 PO; +LEVO750T46 PO; +METR500T PO; +OXYC-128 PO
[2022-11-30] MEDS ORDERED: OXYCODONE/APAP 5-325 MG TABLET ONE (20:44)
[2022-11-30] MEDS ORDERED: ONDANSETRON ODT 4 MG TAB.RAPDIS ONE (20:44)
[2022-11-30] MEDS ORDERED: predniSONE 20 MG TABLET ONE (20:45)
[2022-11-30] MEDS ORDERED: ONDANSETRON ODT 4 MG TAB.RAPDIS SL ONE (20:45)
[2022-11-30] MEDS ORDERED: predniSONE 20 MG TABLET PO ONE (20:45)
[2022-11-30] MEDS ORDERED: OXYCODONE/APAP 5-325 MG TABLET PO ONE (20:45)
[2022-11-30 20:55] LABS: BASOPHILS % (AUTO) 0.3 % (0.0-2.0); HEMATOCRIT 35.7 % (36.7-47.1); HEMOGLOBIN 11.6 g/dL (12.5-16.3); LYMPHOCYTES # (AUTO) 1.7 K/uL (0.8-4.8); LYMPHOCYTES % (AUTO) 9.9 % (20.5-51.5); MEAN CORPUSCULAR HEMOGLOBIN 24.3 uug (23.8-33.4); MEAN CORPUSCULAR HGB CONC 33 g/dL (32.5-36.3); MEAN CORPUSCULAR VOLUME 74.5 fL (73.0-96.2); MONOCYTES # (AUTO) 1.3 K/uL (0.1-1.30); MONOCYTES % (AUTO) 7.7 % (0.0-11.0); NEUTROPHILS # (AUTO) 13.8 K/uL (1.8-8.9); NEUTROPHILS % (AUTO) 82.1 % (38.5-71.5); PLATELET COUNT (AUTO) 365 K/uL (152-348); RED BLOOD CELL COUNT(AUTO) 4.79 MIL/uL (4.06-5.63); RED CELL DISTRIBUTION WIDTH 20.6 % (12.1-16.2); WHITE BLOOD COUNT (AUTO) 16.8 K/uL (3.6-10.2)
[2022-11-30 21:14] LABS: DIFFERENTIAL COMMENT 1
[2022-11-30 21:16] LABS: CALCIUM 8.4 mg/dL (8.5-10.1); CREATININE 1.2 mg/dL (0.6-1.3); POTASSIUM 4.1 mmol/L (3.5-5.1)
[2022-11-30 21:22] LABS: ALBUMIN 2.9 g/dL (3.4-5.0); BILIRUBIN,DIRECT 0.1 mg/dL (0.0-0.2); BILIRUBIN,TOTAL 0.1 mg/dL (0.2-1.0); TOTAL PROTEIN, SERUM 7.2 g/dL (6.4-8.2)
[2022-11-30] MEDS ORDERED: OXYC-133 PO (22:42)
[2022-11-30] MEDS ORDERED: PRED20TA PO (22:42)
[2022-11-30] MEDS ORDERED: DICY20TA11 PO (22:42)
[2022-11-30 22:55] VITALS: BP 136/78; O2SAT 97
== END 2022-11-30 22:56 | disposition home or self-care (01) ==
LOC: ER 19:53
DX: K50.90 Crohn's disease, unspecified, without complications (principal); R10.84 Generalized abdominal pain; M54.50 Low back pain, unspecified; A08.8 Other specified intestinal infections; Z79.2 Long term (current) use of antibiotics; Z79.899 Other long term (current) drug therapy
CPT/HCPCS: 99284; 80076; 80048; 83690; 85025; 36415; 93005; J7512; A4663; Q0162

== ENCOUNTER 2024-12-10 16:26 | Emergency (ER) | payer MEDICAID ==
[~2024-12-10] VITALS: Ht 177.8 cm; Wt 86.2 kg
[~2024-12-10 16:26] MED LIST changes: +DICY20TA11 PO; +HYDR2TAB4 PO; +ONDA4TAB5 PO; +OXYC-133 PO; +PRED20TA PO
[2024-12-10] MEDS ORDERED: BUPRENORPHINE HCL 2 MG TAB.SUBL SL ONE (17:08)
[2024-12-10] MEDS: BUPRENORPHINE HCL 2 MG TAB.SUBL SL ONE (17:14)
[2024-12-10 17:57] LABS: PLATELET COUNT (AUTO) 472 K/uL (152-348); RED BLOOD CELL COUNT(AUTO) 5.45 MIL/uL (4.06-5.63); RED CELL DISTRIBUTION WIDTH 19.6 % (12.1-16.2); WHITE BLOOD COUNT (AUTO) 7.3 K/uL (3.6-10.2)
[2024-12-10 18:06] LABS: CREATININE 1.0 mg/dL (0.6-1.3); SODIUM SERUM 137 mmol/L (136-145); UREA NITROGEN, BLOOD 6 mg/dL (7-18)
[2024-12-10 18:12] LABS: ASPARTATE AMINOTRANSFERASE 10 U/L (15-37); TOTAL PROTEIN, SERUM 7.6 g/dL (6.4-8.2)
[2024-12-10] MEDS ORDERED: IOHEXOL 300MG/ML 100 ML INFUS..BTL ONE (18:31)
[2024-12-10 21:59] LABS: *BILIRUBIN,URIN NEGATIVE (NEGATIVE); *BLOOD, URINE NEGATIVE (NEGATIVE); *CLARITY,URINE CLEAR (CLEAR); *COLOR,URINE YELLOW (YELLOW); *KETONES,URINE NEGATIVE (NEGATIVE); *PROTEIN,URINE TRACE (NEGATIVE); *UROBILINOGEN,URINE 0.2 E.U./dl (NORMAL); LEUKOCYTE ESTERASE ,URINE NEGATIVE (NEGATIVE); NITRITE, URINE NEGATIVE (NEGATIVE); UGLUCOSE NEGATIVE (NEGATIVE)
[2024-12-10 22:06] LABS: SQUAMOUS EPITHELIAL CELL,UR FEW /HPF (NONE SEEN)
[2024-12-11 04:00] VITALS: BP 120/60
[2024-12-11 06:50] VITALS: BP 120/60; TEMP 98; O2SAT 99
== END 2024-12-11 06:50 | disposition home or self-care (01) ==
LOC: ER 16:31
DX: K60.30 Anal fistula, unspecified (principal); K50.90 Crohn's disease, unspecified, without complications; G89.29 Other chronic pain; F20.9 Schizophrenia, unspecified; F31.9 Bipolar disorder, unspecified; F19.10 Other psychoactive substance abuse, uncomplicated; R06.00 Dyspnea, unspecified; Z79.52 Long term (current) use of systemic steroids; Z87.19 Personal history of other diseases of the digestive system; Z88.8 Allergy status to other drugs, medicaments and biological substances; Z88.7 Allergy status to serum and vaccine; Z60.2 Problems related to living alone
CPT/HCPCS: 36415; 71045; 83605; 83690; 84484; 85025; 85730; 87040; A4606; A4663; Q9967